=== PATIENT | female | born 1995 | race Two or more races ===

== ENCOUNTER 2017-10-24 08:35 | Observation (INO) | payer MEDICAID ==
[~2017-10-24] VITALS: Ht 162.6 cm; Wt 72.1 kg
[2017-10-24] MEDS ORDERED: PREN-145 OR (09:49)
[2017-10-24] MEDS ORDERED: TERBUTALINE SULFATE 1 MG/ML 1ML VIAL SC SCH (11:45)
== END 2017-10-24 12:35 | disposition home or self-care (01) | DRG 566 ==
LOC: LDRP 08:35
PROVIDERS: ADMIT Specialist; ATTEND Specialist
DX: O99.613 Diseases of the digestive system complicating pregnancy, third trimester (principal); K80.20 Calculus of gallbladder without cholecystitis without obstruction; O26.893 Other specified pregnancy related conditions, third trimester; N89.8 Other specified noninflammatory disorders of vagina; Z3A.28 28 weeks gestation of pregnancy
CPT/HCPCS: 59025; 76705; 76775; 76815; 81002; 96372; G0378; J3105; 96370

== ENCOUNTER 2017-12-27 14:09 | Observation (INO) | payer MEDICAID ==
[~2017-12-27] VITALS: Ht 160 cm; Wt 77.6 kg
[~2017-12-27 14:09] MED LIST: PREN-145 OR
== END 2017-12-27 15:35 | disposition home or self-care (01) | DRG 566 ==
LOC: LDRP 14:09
PROVIDERS: ADMIT Specialist; ATTEND Specialist
DX: O24.419 Gestational diabetes mellitus in pregnancy, unspecified control (principal); Z3A.00 Weeks of gestation of pregnancy not specified
CPT/HCPCS: 59025; 76818; 81002; G0378

== ENCOUNTER 2018-01-03 13:47 | Observation (INO) | payer MEDICAID | END 2018-01-03 16:35 | disposition home or self-care (01) | DRG 566 | LOC: LDRP 13:47 | PROVIDERS: ADMIT Obstetrics & Gynecology; ATTEND Obstetrics & Gynecology | DX: O24.410 Gestational diabetes mellitus in pregnancy, diet controlled (principal); Z3A.38 38 weeks gestation of pregnancy | CPT/HCPCS: 59025; 76818; 81002; 82948; 82962; G0378 ==

== ENCOUNTER 2018-01-04 12:15 | Observation (INO) | payer MEDICAID ==
[~2018-01-04] VITALS: Ht 160 cm; Wt 63.5 kg
== END 2018-01-04 13:15 | disposition home or self-care (01) | DRG 566 ==
LOC: LDRP 12:15
PROVIDERS: ADMIT Obstetrics & Gynecology; ATTEND Obstetrics & Gynecology
DX: O24.410 Gestational diabetes mellitus in pregnancy, diet controlled (principal); Z3A.38 38 weeks gestation of pregnancy
CPT/HCPCS: 59025; 76815; 81002; G0378

== ENCOUNTER 2018-01-06 14:19 | Observation (INO) | payer MEDICAID | END 2018-01-06 17:35 | disposition home or self-care (01) | DRG 566 | LOC: LDRP 14:19 → UNDODISOB 17:30 | PROVIDERS: ADMIT Specialist; ATTEND Specialist | DX: O24.410 Gestational diabetes mellitus in pregnancy, diet controlled (principal); O62.9 Abnormality of forces of labor, unspecified; Z3A.38 38 weeks gestation of pregnancy | CPT/HCPCS: 59025; 76818; 81002; 82948; 82962; G0378 ==

== ENCOUNTER 2018-01-10 13:59 | Observation (INO) | payer MEDICAID | END 2018-01-10 15:00 | disposition home or self-care (01) | DRG 566 | LOC: LDRP 13:59 | PROVIDERS: ADMIT Obstetrics & Gynecology; ATTEND Obstetrics & Gynecology | DX: O24.419 Gestational diabetes mellitus in pregnancy, unspecified control (principal); Z3A.00 Weeks of gestation of pregnancy not specified | CPT/HCPCS: 59025; 76818; 81002; 82948; 82962; G0378 ==

== ENCOUNTER 2018-01-14 10:15 | Observation (INO) | payer MEDICAID | END 2018-01-14 12:10 | disposition home or self-care (01) | DRG 566 | LOC: LDRP 10:15 | PROVIDERS: ADMIT Obstetrics & Gynecology; ATTEND Obstetrics & Gynecology | DX: O24.419 Gestational diabetes mellitus in pregnancy, unspecified control (principal); O26.893 Other specified pregnancy related conditions, third trimester; N89.8 Other specified noninflammatory disorders of vagina; R10.9 Unspecified abdominal pain; O62.9 Abnormality of forces of labor, unspecified; Z3A.39 39 weeks gestation of pregnancy | CPT/HCPCS: 59025; 76818; 81002; 82948; 82962; G0378 ==

== ENCOUNTER 2018-01-15 08:00 | Inpatient (IN) | payer MEDICAID ==
[~2018-01-15] VITALS: Ht 160 cm; Wt 78.9 kg
[2018-01-15] MEDS ORDERED: LACT. RINGERS/OXYTOCIN 20UNITS 1,000 ML IV SCH (08:41)
[2018-01-15] MEDS ORDERED: DERMOPLAST 60ML BOTTLE TOP PRN (08:45)
[2018-01-15] MEDS ORDERED: NALBUPHINE HCL 10 MG/1ml INJECTION IV PRN (08:45)
[2018-01-15] MEDS ORDERED: PHISODERM TOP SOLN 240ML BTL TOP PRN (08:45)
[2018-01-15] MEDS ORDERED: WITCH HAZEL-GLYCERIN PAD TOP PRN (08:45)
[2018-01-15] MEDS ORDERED: LIDOCAINE 2% (LOCAL ANESTH.) PF 5ml SDV ID ONE (08:45)
[2018-01-15] MEDS: LACTATED RINGER'S 1,000 ML IV SCH ×2 (08:48→12:30)
[2018-01-15 09:12] LABS: Basophils # (auto) 0 uL; Basophils % (auto) 0.3 % (0.0-2.0); Eosinophils # (auto) 0 uL; Eosinophils % (auto) 0.3 % (0.0-7.0); Hemoglobin 13.1 g/dL (12.2-16.2); Lymphocytes # (auto) 1.4 uL; Lymphocytes % (auto) 14.3 % (10.0-50.0); Mean Corpuscular Hemoglobin 32.1 pg (28.0-32.0); Mean Corpuscular Hgb Conc. 34.6 g/dL (32.0-36.0); Mean Corpuscular Volume 92.7 fL (80.0-100.0); Monocytes # (auto) 0.5 uL; Monocytes % (auto) 5.5 % (0.0-12.0); Neutrophils # (auto) 7.5 uL; Neutrophils % (auto) 79.6 % (37.0-80.0); Nucleated Red Blood Cells % 0.1 %; Platelet Count (auto) 164 10^3/uL (140-450); Red Cell Distribution Width 14.1 % (11.8-14.3); White Blood Cell 9.5 10^3/uL (4.4-10.8)
[2018-01-15 09:14] LABS: Urine Bacteria NONE SEEN /hpf (None Seen); Urine Blood Negative /uL (Negative); Urine WBC <1 /hpf (0 - 5)
[2018-01-15 09:29] LABS: INR 0.84 (0.9-1.15); Partial Thromboplastin Time 27.1 sec (23.78-33.04); Prothrombin Time 9.1 sec (9.27-12.13)
[2018-01-15 09:32] LABS: Albumin 2.6 g/dL (3.4-5.0); BUN/Creatinine Ratio 9.7; Bilirubin, Total 0.2 mg/dL (0.2-1.0); Calcium 8.5 mg/dL (8.5-10.1); Potassium 3.8 mmol/L (3.5-5.1); Total Protein 6.6 g/dL (6.4-8.2)
[2018-01-15] MEDS ORDERED: NALOXONE HCL 0.4 MG/ML VIAL IV ONE ×2 (10:00→12:00)
[2018-01-15] MEDS ORDERED: fentaNYL W ROPIVACAINE 150 ML EPI SCH ×2 (10:00→12:00)
[2018-01-15] MEDS ORDERED: ePHEDrine SULFATE 50 MG/ML AMP IV ONE ×2 (10:00→12:00)
[2018-01-15] MEDS ORDERED: LIDOCAINE HCL 2 %PF INJ 10ML AMP IJ ONE (10:00)
[2018-01-15] MEDS ORDERED: fentaNYL CITRATE 100 MCG/2 ML VL IV ONE (10:00)
[2018-01-15] MEDS ORDERED: SODIUM CHLORIDE 0.9% 500 ML IV PRN (11:49)
[2018-01-15] MEDS ORDERED: METHYLERGONOVINE MALEATE 0.2 MG/ML AMP IM ONE ×2 (13:44→17:30)
[2018-01-15] MEDS ORDERED: ACETAMINOPHEN 325 MG TAB PO ONE (17:16)
[2018-01-15] MEDS ORDERED: LACT. RINGERS/OXYTOCIN 20UNITS 500 ML IV ONE (17:19)
[2018-01-15] MEDS ORDERED: ACETAMINOPHEN 325 MG TAB PO PRN (17:30)
[2018-01-15] MEDS ORDERED: IBUPROFEN 600 MG TAB PO PRN (17:30)
[2018-01-15] MEDS ORDERED: DOCUSATE CALCIUM 240 MG CAP PO SCH (17:37)
[2018-01-15 19:00] VITALS: BP 121/58
[2018-01-15 23:00] VITALS: BP 109/55
[2018-01-16 03:00] VITALS: BP 105/58
[2018-01-16 04:06] LABS: RPR Non Reactive (Non Reactive)
[2018-01-16 07:30] VITALS: BP 110/68
[2018-01-16 11:25] VITALS: BP 102/56
[2018-01-16] MEDS ORDERED: TETANUS-DIPTH-ACEL PERTUSSIS 0.5ML SYRG IM ONE (13:45)
[2018-01-16 15:00] VITALS: BP 110/68
== END 2018-01-16 16:05 | disposition home or self-care (01) | DRG 560 ==
LOC: LDRP 08:00 → OBSVTOIN 08:00 → LDRP 12:38
PROVIDERS: ADMIT Specialist; ATTEND Specialist
PROC: 10E0XZZ Delivery of Products of Conception, External Approach (ICD-10-PCS; principal; 2018-01-15)
PROC: 0W8NXZZ Division of Female Perineum, External Approach (ICD-10-PCS; 2018-01-15)
PROC: 3E0R3BZ Introduction of Anesthetic Agent into Spinal Canal, Percutaneous Approach (ICD-10-PCS; 2018-01-15)
PROC: 00HU33Z Insertion of Infusion Device into Spinal Canal, Percutaneous Approach (ICD-10-PCS; 2018-01-15)
DX: O24.429 Gestational diabetes mellitus in childbirth, unspecified control (principal); O77.0 Labor and delivery complicated by meconium in amniotic fluid; Z37.0 Single live birth; Z3A.39 39 weeks gestation of pregnancy; Z23 Encounter for immunization
CPT/HCPCS: 36415; 51702; 59025; 59409; 62282; 80053; 81001; 81002; 82948; 82962; 85025; 85610; 85730; 86592; 86850; 86900; 86901; 90715; 96365; 96366; 96372; J2590; J3010

== ENCOUNTER 2020-01-15 09:16 | Inpatient (IN) | payer MEDICAID ==
[~2020-01-15] VITALS: Ht 63 cm; Wt 78.5 kg
[2020-01-15] MEDS ORDERED: NALBUPHINE HCL 10 MG/1ml INJECTION IV PRN (10:00)
[2020-01-15] MEDS ORDERED: LIDOCAINE 2%HCL (LOCAL ANESTH.) INJ 20ML MDV ID ONE (10:00)
[2020-01-15] MEDS ORDERED: PHISODERM TOP SOLN 240ML BTL TOP PRN (10:00)
[2020-01-15] MEDS ORDERED: LACT. RINGERS/OXYTOCIN 20UNITS 1,000 ML IV SCH (10:00)
[2020-01-15] MEDS ORDERED: DERMOPLAST 60ML BOTTLE TOP PRN (10:00)
[2020-01-15] MEDS ORDERED: LACTATED RINGER'S 1,000 ML IV SCH (10:00)
[2020-01-15] MEDS ORDERED: METHYLERGONOVINE MALEATE 0.2 MG/ML AMP IM PRN (10:00)
[2020-01-15] MEDS ORDERED: fentaNYL CITRATE 100 MCG/2 ML VL IV ONE ×2 (11:15→13:00)
[2020-01-15] MEDS ORDERED: LIDOCAINE HCL 2 %PF INJ 10ML AMP IJ ONE ×2 (11:15→13:00)
[2020-01-15] MEDS ORDERED: ePHEDrine SULFATE 50 MG/ML AMP IV ONE ×2 (11:15→13:00)
[2020-01-15] MEDS ORDERED: NALOXONE HCL 0.4 MG/ML VIAL IV ONE ×2 (11:15→13:00)
[2020-01-15] MEDS ORDERED: fentaNYL 200mCg/100ml W ROPIVA 100 ML EPI SCH ×2 (11:15→13:00)
[2020-01-15 11:20] LABS: Basophils # (auto) 0 10 ^3/uL (0-0.2); Basophils % (auto) 0.3 % (0.0-2.0); Eosinophils # (auto) 0 10 ^3/uL (0-0.8); Eosinophils % (auto) 0.4 % (0.0-7.0); Hematocrit 39.4 % (36.0-46.0); Hemoglobin 13.6 g/dL (12.2-16.2); Lymphocytes # (auto) 1.6 10 ^3/uL (0.4-5.4); Lymphocytes % (auto) 17.2 % (10.0-50.0); Mean Corpuscular Hemoglobin 31.5 pg (28.0-32.0); Mean Corpuscular Hgb Conc. 34.5 g/dL (32.0-36.0); Mean Corpuscular Volume 91.5 fL (80.0-100.0); Monocytes # (auto) 0.5 10 ^3/uL (0-1.3); Monocytes % (auto) 5.2 % (0.0-12.0); Neutrophils % (auto) 76.9 % (37.0-80.0); Platelet Count (auto) 159 10^3/uL (140-450); White Blood Cell 9.1 10^3/uL (4.4-10.8)
[2020-01-15 11:27] LABS: Urine Bacteria NONE SEEN /hpf (None Seen); Urine Blood TRACE /uL (Negative); Urine Specific Gravity 1.024 (1.001-1.035); Urine WBC 1 /hpf (0 - 5)
[2020-01-15 11:30] LABS: INR 0.94 (0.9-1.15); Partial Thromboplastin Time 26.1 sec (23.64-32.05)
[2020-01-15 11:58] LABS: Cannabinoid Screen, Urine NEGATIVE (NEGATIVE)
[2020-01-15 12:00] LABS: Amphetamine Screen, Urine NEGATIVE (NEGATIVE); Barbiturate Scree,Urine NEGATIVE (NEGATIVE); Benzodiazephine Screen, Urine NEGATIVE (NEGATIVE); Cocaine Screen, Urine NEGATIVE (NEGATIVE); Opiate Scree,Urine NEGATIVE (NEGATIVE); Phencyclidine Screen, Urine NEGATIVE (NEGATIVE)
[2020-01-15 12:05] LABS: Alcohol, Urine < 3.0 mg/dL (0-10)
[2020-01-15 12:08] LABS: Potassium 3.8 mmol/L (3.5-5.1)
[2020-01-15 12:17] LABS: Albumin 2.8 g/dL (3.4-5.0); BUN/Creatinine Ratio 13.6; Calcium 8.6 mg/dL (8.5-10.1)
[2020-01-15 12:26] LABS: Bilirubin, Total 0.2 mg/dL (0.2-1.0); Total Protein 6.7 g/dL (6.4-8.2); Uric Acid 5.3 mg/dL (2.6-6.0)
[2020-01-15] MEDS ORDERED: LACTATED RINGER'S 1,000 ML IV ONE (12:59)
[2020-01-15] MEDS ORDERED: LIDOCAINE W/ EPINEPHRINE 1 % INJ 30ML IJ ONE (13:00)
--- NOTE | 2020-01-15 15:30 | NUR ---
Admission Note Vaginal: of viable by Dr. Curry. dried, stimulated, weighed, then placed on mothers chest to initiate skin to skin contact. Apgars . ID bands applied on , mother, and father. Education on the benefits of SSC and encouragement of given.
[2020-01-15] MEDS ORDERED: ACETAMINOPHEN 325 MG TAB PO PRN (15:45)
--- NOTE | 2020-01-15 16:18 | NUR ---
Teaching: Reviewed information in [facility] booklet with patient. Discussed benefits of and risks associated with not . Discussed different positions, proper latch, feeding cues, and baby-led . Provided information of medication side effects related to . All questions and concerns addressed at this time. Patient verbalized understanding of information.
[2020-01-15] MEDS: WITCH HAZEL-GLYCERIN PAD TOP PRN (18:14)
[2020-01-15 18:30] VITALS: BP 117/56
--- NOTE | 2020-01-15 18:35 | NUR ---
Ambulation: Patient OOB with standby assistance by RN. Patient ambulated to bathroom with steady gait. Patient able to void 450ml without difficulty. [facility] teaching provided with returned demonstration by patient. Clean gown provided and bed linen changed. Patient ambulated back to bed with steady gait and no distress noted.
--- NOTE | 2020-01-15 19:30 | NUR ---
ROOM CHANGE: PATIENT AND ALL BELONGINGS MOVED TO ROOM 7-A. PATIENT AMBULATED, GAIT STEADY, TO ROOM WHILE PUSHING IN OPEN CRIB. PATIENT ORIENTED TO ROOM. SAFETY PRECAUTIONS IN PLACE; BED IN LOW POSITION, WHEELS LOCKED, SIDE RAILS UP X2, AND CALL LIGHT WITHIN REACH.
[2020-01-15 23:15] VITALS: BP 107/53
[2020-01-16] MEDS: IBUPROFEN 600 MG TAB PO PRN ×2 (00:32→10:22)
[2020-01-16 03:15] VITALS: BP 114/71
[2020-01-16 07:30] VITALS: BP 116/58
[2020-01-16] MEDS: WITCH HAZEL-GLYCERIN PAD TOP PRN (07:47)
[2020-01-16 11:30] VITALS: BP 117/71
[2020-01-16 15:20] VITALS: BP 116/71
--- NOTE | 2020-01-16 17:45 | NUR ---
Discharge: Discharge instructions given as ordered. Pt encouraged to follow up with [facility] as instructed. All questions and concerns addressed. Patient verbalized understanding. Medication reconciliation completed and copy given to patient. All required/requested vaccines given and copies of vaccinations given to patient. Patient encouraged to prepare to depart unit.
--- NOTE | 2020-01-16 17:50 | NUR ---
Discharge: Patient taken to car , ambulatory with steady gait, accompanied by staff and family member. No distress noted at time of departure, no adverse changes in status since initial assessment.
== END 2020-01-16 17:50 | disposition home or self-care (01) | DRG 560 ==
LOC: LDRP 09:16 → OBSVTOIN 09:54 → LDRP 09:55
PROVIDERS: ADMIT Specialist; ATTEND Specialist
PROC: 10E0XZZ Delivery of Products of Conception, External Approach (ICD-10-PCS; principal; 2020-01-15)
PROC: 10907ZC Drainage of Amniotic Fluid, Therapeutic from Products of Conception, Via Natural or Artificial Opening (ICD-10-PCS; 2020-01-15)
PROC: 0UQGXZZ Repair Vagina, External Approach (ICD-10-PCS; 2020-01-15)
PROC: 3E0R3BZ Introduction of Anesthetic Agent into Spinal Canal, Percutaneous Approach (ICD-10-PCS; 2020-01-15)
PROC: 00HU33Z Insertion of Infusion Device into Spinal Canal, Percutaneous Approach (ICD-10-PCS; 2020-01-15)
DX: O71.4 Obstetric high vaginal laceration alone (principal); Z11.59 Encounter for screening for other viral diseases; Z37.0 Single live birth; Z3A.39 39 weeks gestation of pregnancy
CPT/HCPCS: 36415; 59025; 59409; 62282; 80053; 80307; 81001; 81002; 84112; 84550; 85025; 85610; 85730; 86592; 86850; 86900; 86901; 96360; 96361; 96365; 96366; G0378; J2590